=== PATIENT | female | born 1990 | race Caucasian/White ===

== ENCOUNTER 2017-04-26 11:59 | Emergency (ER) | payer BC ==
--- NOTE | 2017-04-26 12:32 | EDPHY ---
H & P Time Seen by Provider: 04/26/17 12:31 HPI/ROS: Chief complaint. Abdominal pain HPI. 26-year-old female 2 day history of right lower quadrant and flank abdominal pain. It is described as sharp and stabbing. Hurts to move. Now some low back pain. Some discomfort in the right groin. Sharp as well as crampy. Some symptoms on the left mid abdomen. Nausea without vomiting or diarrhea. Burping more than usual. Slight urinary discomfort. Recent upper respiratory symptoms. ROS Constitutional. no fever/chills, no weakness Eyes. no problems with vision ENT. no sore throat, no nasal drainage Cardiovascular. no chest pain Respiratory. no shortness of breath, no cough Abdominal. Abdominal pain with nausea . Dysuria MS. no calf pain/swelling, no neck/back pain, no joint pain Skin. no rash Lymph. no swollen glands Neuro. no headache, no dizziness, no difficulty walking or with speech Past Medical/Surgical History: Kikuchi luz disease Social History: Single, nonsmoker, no alcohol Smoking Status: Never smoked Physical Exam: General Appearance: Alert well-developed female mild distress vital signs are stable Eyes: Pupils equal and round no pallor or injection. ENT, Mouth: Mucous membranes are moist. Respiratory: There are no retractions, lungs are clear to auscultation. Cardiovascular: Regular rate and rhythm. Gastrointestinal: Abdomen is soft and tender over the right flank, a right mid and lower quadrant as well as right adnexal area. No masses. Normal bowel sounds Neurological: Awake and alert, sensory and motor exams grossly normal. Skin: Warm and dry, no rashes. Musculoskeletal: Neck is supple nontender. Extremities symmetrical, full range of motion. Psychiatric: Patient is oriented X 3, there is no agitation. Constitutional: Initial Vital Signs Temperature (C) 36.7 C 04/26/17 12:00 Heart Rate 78 04/26/17 12:00 Respiratory Rate 16 04/26/17 12:00 Blood Pressure 124/94 H 04/26/17 12:00 O2 Sat (%) 98 04/26/17 12:00 O2 Delivery Mode Room Air Allergies/Adverse Reactions: amoxicillin Allergy (Mild, Verified 04/26/17 12:05) GI PEANUTS Allergy (Severe, Uncoded 04/26/17 12:00) Anaphylaxis TREE NUTS Allergy (Severe, Uncoded 04/26/17 12:00) Anaphylaxis Home Medications: Medication Instructions Recorded Control Pill 04/26/17 Hydrocodone/APAP 5/325 [Marion 1 each PO Q4-6PRN PRN #10 tab 04/26/17 5/325 (*)] Sertraline HCl [Zoloft 25mg (*)] 25 mg PO DAILY 04/26/17 Medical Decision Making - Diagnostics EKG Interpretation: Ultrasound of the pelvis and right lower quadrant reviewed by me and discussed Dr. Matta shows small amount free fluid. She has a 4.3 cm left ovarian cyst and what appears to be a collapsing right ovarian cyst. Appendix is not seen Imaging Results: Imaging Impressions Abdomen Ultrasound 04/26/17 12:54 Impression: 4.3 cm cyst left ovary. Possible small collapsed cyst in right ovary with mild free fluid in the cul-de-sac. Ultrasound Abdomen Limited History: Right lower quadrant pain. Findings: Ultrasound was performed of the right lower quadrant. Neither a normal nor an abnormal appendix is visualized. No evidence for an abnormal fluid collection. Impression: Indeterminate ultrasound for appendicitis as neither a normal nor an abnormal appendix is visualized. Results called and discussed with Kevin Galdamez on 04/26/2017 at 1441 hours. Pelvic/Renal Ultrasound 04/26/17 12:55 Impression: 4.3 cm cyst left ovary. Possible small collapsed cyst in right ovary with mild free fluid in the cul-de-sac. Ultrasound Abdomen Limited History: Right lower quadrant pain. Findings: Ultrasound was performed of the right lower quadrant. Neither a normal nor an abnormal appendix is visualized. No evidence for an abnormal fluid collection. Impression: Indeterminate ultrasound for appendicitis as neither a normal nor an abnormal appendix is visualized. Results called and discussed with Kevin Galdamez on 04/26/2017 at 1441 hours. Procedures: IV normal saline ED Course/Re-evaluation: Re-evaluation at 3:00 p.m.. Patient is feeling better and comfortable. The patient, her mom and I discussed the imaging and lab results. We discussed treatment plan including criteria for return. We discussed CT scan for nonvisualization of the appendix. As we do have an alternative diagnosis they are comfortable without CT scan and also notes that her symptoms have been improving. Differential Diagnosis: I considered ectopic , ovarian cyst, appendicitis, urinary tract infection - Data Points Laboratory Results: Laboratory Results 04/26/17 12:30 04/26/17 12:30 04/26/17 04/26/17 04/26/17 12:30 12:30 12:30 WBC RBC Hgb Hct MCV MCH MCHC RDW Plt Count MPV Neut % (Auto) Lymph % (Auto) Mclennan % (Auto) Eos % (Auto) Baso % (Auto) Nucleat RBC Rel Count Absolute Neuts (auto) Absolute Lymphs (auto) Absolute Monos (auto) Absolute Eos (auto) Absolute Basos (auto) Absolute Nucleated RBC Immature Gran % Immature Gran # Sodium Potassium Chloride Carbon Dioxide Anion Gap BUN Creatinine Estimated GFR Glucose Calcium Beta HCG, Qual NEGATIVE Urine Color PALE YELLOW Urine Appearance CLEAR Urine pH 6.0 (5.0-7.5) Ur Specific Viking 1.004 (1.002-1.030) Urine Protein NEGATIVE (NEGATIVE) Urine Ketones NEGATIVE (NEGATIVE) Urine Blood NEGATIVE (NEGATIVE) Urine Nitrate NEGATIVE (NEGATIVE) Urine Bilirubin NEGATIVE (NEGATIVE) Urine Urobilinogen NEGATIVE EU EU (0.2-1.0) Ur Leukocyte Esterase NEGATIVE (NEGATIVE) Urine RBC Cancelled NONE SEEN /hpf /hpf (0-3) Urine WBC Cancelled 1-3 /hpf /hpf (0-3) Ur Epithelial Cells Cancelled TRACE /lpf /lpf (NONE-1+) Ur Renal Epithelial Cell Cancelled Urine Crystals Cancelled Ammonium Urate Crystals Cancelled Calcium Carbonate Cryst Cancelled Calcium Phosphate Cryst Cancelled Calcium Oxalate Crystal Cancelled Leucine Crystals Cancelled Cystine Crystals Cancelled Uric Acid Crystals Cancelled Triple Phos Crystals Cancelled Sulfonamide Crystals Cancelled Cholesterol Crystals Cancelled Tyrosine Crystals Cancelled Bilirubin Crystals Cancelled Amorphous Sediment Cancelled Urine Bacteria Cancelled 1+ /hpf H /hpf (NONE SEEN) Epithelial Casts Cancelled Fatty Casts Cancelled Hyaline Casts Cancelled Granular Casts Cancelled Waxy Casts Cancelled Broad Casts Cancelled RBC Casts Cancelled WBC Casts Cancelled Urine Mucus Cancelled TRACE /lpf /lpf (NONE-1+) Urine Trichomonas Cancelled Urine Yeast Cancelled Urine Sperm Cancelled Ur Oval Fat Bodies Cancelled Ur Free Fat Droplets Cancelled Urine Glucose NEGATIVE (NEGATIVE) Urine Comment Cancelled 04/26/17 04/26/17 12:30 12:30 WBC 9.54 10^3/uL H 10^3/uL (3.80-9.50) RBC 4.40 10^6/uL 10^6/uL (4.18-5.33) Hgb 14.5 g/dL g/dL (12.6-16.3) Hct 41.3 % % (38.0-47.0) MCV 93.9 fL fL (81.5-99.8) MCH 33.0 pg pg (27.9-34.1) MCHC 35.1 g/dL g/dL (32.4-36.7) RDW 11.7 % % (11.5-15.2) Plt Count 212 10^3/uL 10^3/uL (150-400) MPV 10.1 fL fL (8.7-11.7) Neut % (Auto) 72.6 % % (39.3-74.2) Lymph % (Auto) 19.2 % % (15.0-45.0) Mclennan % (Auto) 6.6 % % (4.5-13.0) Eos % (Auto) 1.0 % % (0.6-7.6) Baso % (Auto) 0.2 % L % (0.3-1.7) Nucleat RBC Rel Count 0.0 % % (0.0-0.2) Absolute Neuts (auto) 6.92 10^3/uL H 10^3/uL (1.70-6.50) Absolute Lymphs (auto) 1.83 10^3/uL 10^3/uL (1.00-3.00) Absolute Monos (auto) 0.63 10^3/uL 10^3/uL (0.30-0.80) Absolute Eos (auto) 0.10 10^3/uL 10^3/uL (0.03-0.40) Absolute Basos (auto) 0.02 10^3/uL 10^3/uL (0.02-0.10) Absolute Nucleated RBC 0.00 10^3/uL 10^3/uL (0-0.01) Immature Gran % 0.4 % % (0.0-1.1) Immature Gran # 0.04 10^3/uL 10^3/uL (0.00-0.10) Sodium 142 mEq/L mEq/L (134-144) Potassium 4.1 mEq/L mEq/L (3.5-5.2) Chloride 107 mEq/L mEq/L (97-110) Carbon Dioxide 22 mEq/l mEq/l (22-31) Anion Gap 13 mEq/L mEq/L (8-16) BUN 8 mg/dL mg/dL (7-23) Creatinine 0.7 mg/dL mg/dL (0.6-1.0) Estimated GFR > 60 Glucose 109 mg/dL H mg/dL (70-100) Calcium 9.4 mg/dL mg/dL (8.5-10.4) Beta HCG, Qual Urine Color Urine Appearance Urine pH Ur Specific Viking Urine Protein Urine Ketones Urine Blood Urine Nitrate Urine Bilirubin Urine Urobilinogen Ur Leukocyte Esterase Urine RBC Urine WBC Ur Epithelial Cells Ur Renal Epithelial Cell Urine Crystals Ammonium Urate Crystals Calcium Carbonate Cryst Calcium Phosphate Cryst Calcium Oxalate Crystal Leucine Crystals Cystine Crystals Uric Acid Crystals Triple Phos Crystals Sulfonamide Crystals Cholesterol Crystals Tyrosine Crystals Bilirubin Crystals Amorphous Sediment Urine Bacteria Epithelial Casts Fatty Casts Hyaline Casts Granular Casts Waxy Casts Broad Casts RBC Casts WBC Casts Urine Mucus Urine Trichomonas Urine Yeast Urine Sperm Ur Oval Fat Bodies Ur Free Fat Droplets Urine Glucose Urine Comment Medications Given: Discontinued Medications Sodium Chloride (Ns) 1,000 mls @ 0 mls/hr IV EDNOW ONE; Wide Open PRN Reason: Protocol Stop: 04/26/17 12:55 Last Admin: 04/26/17 13:01 Dose: 1,000 mls Departure - Departure Disposition: Home, Routine, Self-Care Clinical Impression: Ovarian cyst Qualifiers: Laterality: bilateral Qualified Code(s): N83.201 - Unspecified ovarian cyst, right side; N83.202 - Unspecified ovarian cyst, left side; N83.202 - Unspecified ovarian cyst, left side Condition: Good Instructions: Ovarian Cyst (ED), Ruptured Ovarian Cyst (ED) Additional Instructions: Heat to your low abdomen. Ibuprofen 600 mg every 6 hr for discomfort. Hydrocodone in addition if necessary for discomfort. Return for worsening pain , fever, vomiting. Recheck in 1-2 days if not continuing to improve Repeat ultrasound after 1 menstrual cycle Referrals: Terrell Donovan MD [Primary Care Provider] - As per Instructions [facility] [Outside] - As per Instructions Prescriptions: Hydrocodone/APAP 5/325 [Marion 5/325 (*)] 1 each PO Q4-6PRN PRN #10 tab PRN Reason: Pain, Moderate
[2017-04-26 12:48] LABS: % IMMATURE GRANULYOCYTES 0.4 % (0.0-1.1); ABSOLUTE IMMATURE GRANULOCYTES 0.04 10^3/uL (0.00-0.10); ADD DIFF? NO; ADD MORPH? NO; ADD SCAN? NO; ATYPICAL LYMPHOCYTE FLAG 0 (0-99); FRAGMENT RBC FLAG 0 (0-99); HEMATOCRIT 41.3 % (38.0-47.0); HEMOGLOBIN 14.5 g/dL (12.6-16.3); LEFT SHIFT FLG 0 (0-99); LIPEMIA HEMOLYSIS FLAG 90 (0-99); MEAN CELL HEMOGLOBIN CONCENTR. 35.1 g/dL (32.4-36.7); MEAN CELL VOLUME 93.9 fL (81.5-99.8); MEAN PLATELET VOLUME 10.1 fL (8.7-11.7); PLATELET CLUMPS FLAG 50 (0-99); PLATELET COUNT 212 10^3/uL (150-400); RED CELL DISTRIBUTION WIDTH 11.7 % (11.5-15.2)
[2017-04-26 12:53] LABS: COLOR PALE YELLOW; LEUKOCYTE ESTERASE,URINE NEGATIVE (NEGATIVE); NITRITE,URINE NEGATIVE (NEGATIVE)
[2017-04-26] MEDS ORDERED: NS 1,000 ML IV ONE (12:54)
[2017-04-26 13:03] LABS: ANION GAP 13 mEq/L (8-16); CALCIUM 9.4 mg/dL (8.5-10.4); CARBON DIOXIDE 22 mEq/l (22-31); CHLORIDE 107 mEq/L (97-110); CREATININE 0.7 mg/dL (0.6-1.0); GLOMERULAR FILTRATION RATE > 60; GLUCOSE 109 mg/dL (70-100); POTASSIUM 4.1 mEq/L (3.5-5.2); SODIUM 142 mEq/L (134-144)
[2017-04-26 13:05] LABS: BACTERIA 1+ /hpf (NONE SEEN); MUCUS TRACE /lpf (NONE-1+)
[2017-04-26 13:06] LABS: RBC,URINE NONE SEEN /hpf (0-3)
[2017-04-26 15:33] VITALS: TEMP 98.2
[2017-04-26 15:37] VITALS: BP 128/87; PULSE 68; RESP 17; O2SAT 96
== END 2017-04-26 15:35 | disposition home or self-care (01) ==
DX: N83.201 Unspecified ovarian cyst, right side (principal); N83.202 Unspecified ovarian cyst, left side; E86.9 Volume depletion, unspecified; Z91.010 Allergy to peanuts